=== PATIENT | male | born 1990 | race African-American/Black ===

== ENCOUNTER 2022-02-17 15:10 | Emergency (ER) | payer OTHER ==
[~2022-02-17] VITALS: Ht 188 cm; Wt 142.9 kg
[~2022-02-17 15:10] MED LIST: SINGULAIR10 MG PO; ZITHROMAX500 MG PO
[2022-02-17] MEDS ORDERED: LOSARTAN-HCTZ1 EAC1 (16:24)
[2022-02-17] MEDS ORDERED: DICLOFENAC POTA50 MG PO (22:58)
[2022-02-17] MEDS ORDERED: NORFLEX100MG PO (22:59)
== END 2022-02-17 23:36 | disposition home or self-care (01) ==
LOC: ER 15:10
DX: N48.89 Other specified disorders of penis (principal); M54.9 Dorsalgia, unspecified

== ENCOUNTER 2023-03-08 10:43 | Emergency (ER) | payer OTHER ==
[~2023-03-08] VITALS: Ht 190.5 cm; Wt 131.5 kg
[~2023-03-08 10:43] MED LIST changes: +AMOX-CLAV 875-1 EACH PO; +DICLOFENAC POTA50 MG PO; +IPRAT-ALBUT 0.5-3 ML IH; +LOSARTAN-HCTZ1 EAC1; +MEDROLPACK PO; +NORFLEX100MG PO; +TUSNEL LIQUID178 ML PO
== END 2023-03-08 14:26 | disposition home or self-care (01) ==
LOC: ER 10:43
DX: J10.1 Influenza due to other identified influenza virus with other respiratory manifestations (principal); B34.9 Viral infection, unspecified; I10 Essential (primary) hypertension; Z20.822 Contact with and (suspected) exposure to COVID-19